=== PATIENT | female | born 1985 | race Native Hawaiian/Other Pacific Islander ===

== ENCOUNTER 2019-03-04 23:14 | Inpatient (IN) | payer OTHER ==
[~2019-03-04] VITALS: Ht 175.3 cm; Wt 121.8 kg
[2019-03-04] MEDS ORDERED: normal saline 1000ML IV soln IVB ONE (23:40)
[2019-03-04] MEDS ORDERED: ondansetron/PF 4mg/2ml inj IV ONE (23:40)
[2019-03-04] MEDS ORDERED: normal saline 1000ml 1,000 ML IVB ONE (23:57)
[2019-03-04 23:59] LABS: BASOPHILS # (AUTO) 0.1 X10'3 (0-0.2); BASOPHILS % (AUTO) 0.7 % (0-1); EOSINOPHILS # (AUTO) 0.7 X10'3 (0-0.9); EOSINOPHILS % (AUTO) 5.7 % (0-6); HEMATOCRIT 32.8 % (35.0-45.0); HEMOGLOBIN 11.2 g/dl (12.0-16.0); LYMPHOCYTES # (AUTO) 1.6 X10'3 (1.1-4.8); LYMPHOCYTES % (AUTO) 13.2 % (21-51); MEAN CORPUSCULAR HGB CONC 34.2 g/dL (33.0-36.5); MEAN CORPUSCULAR VOLUME 81.9 FL (78-98); MEAN PLATELET VOLUME 7.9 FL (7.4-10.4); MONOCYTES # (AUTO) 0.9 X10'3 (0-0.9); NEUTROPHILS # (AUTO) 9.1 X10'3 (1.8-7.7); NEUTROPHILS % (AUTO) 73.4 % (42-75); PLATELET COUNT 320 X10'3 (140-440); RED CELL DISTRIBUTION WIDTH 15.6 % (11.5-14.5); WHITE BLOOD COUNT 12.4 X10'3 (4.5-11.0)
[2019-03-05] MEDS ORDERED: ketorolac tromethamine 15mg/ml inj. IV ONE
[2019-03-05] MEDS ORDERED: metoclopramide 5 mg/ml inj IV ONE
[2019-03-05] MEDS ORDERED: diphenhydrAMINE 50 mg/ml inj IV ONE
[2019-03-05 00:33] LABS: PARTIAL THROMBOPLASTIN TIME 31 SECONDS (22-32)
[2019-03-05] MEDS ORDERED: morphine 2 MG/ML inj. syringe IV PRN ×2 (01:25)
[2019-03-05] MEDS ORDERED: magnesium hydroxide 30ml (MOM) UD suspension PO PRN (01:25)
[2019-03-05] MEDS ORDERED: mag hydrox/Alum hydrox/simeth 30ml oral suspension PO PRN (01:25)
[2019-03-05] MEDS ORDERED: ondansetron/PF 4mg/2ml inj IV PRN (01:25)
[2019-03-05] MEDS ORDERED: acetaminophen 325mg tablet PO PRN (01:25)
[2019-03-05] MEDS ORDERED: BACL10TA PO (01:29)
[2019-03-05] MEDS ORDERED: CAPS60CR6 TP (01:29)
[2019-03-05] MEDS ORDERED: IBUP-1984 PO (01:30)
[2019-03-05] MEDS ORDERED: MELO-102 PO (01:31)
[2019-03-05 04:23] VITALS: BP 137/71
[2019-03-05] MEDS: normal saline 1000ml 1,000 ML IV SCH ×3 (04:42→21:31)
--- NOTE | 2019-03-05 06:24 | NUR ---
Problems reprioritized. Patient report given, questions answered & plan of care reviewed with Shane RN.
--- NOTE | 2019-03-05 06:30 | NUR ---
Patient in room [facility]. I have received report from Fausto TERRY and had the opportunity to ask questions and assume patient care.
[2019-03-05] MEDS: acetaminophen 325mg tablet PO PRN ×2 (06:59→19:01)
[2019-03-05 07:26] VITALS: BP 140/68
[2019-03-05] MEDS ORDERED: NORMAL SALINE IV ONE (08:00)
[2019-03-05] MEDS ORDERED: SINCALIDE IV ONE (08:00)
[2019-03-05] MEDS: piperacillin/tazo 4.5gm/100ml 100 ML IV SCH ×2 (08:31→16:23)
[2019-03-05] MEDS: enoxaparin 40mg/0.4ml syringe SUBCUT SCH (08:40)
[2019-03-05] MEDS ORDERED: FLU VACC QS2019-20 36MOS UP/PF 60 MCG/0.5 ML SYRINGE IMVAC ONE (10:00)
[2019-03-05 11:43] VITALS: BP 125/55
[2019-03-05 11:44] VITALS: BP 102/54
--- NOTE | 2019-03-05 14:11 | NUR ---
Malnutrition Consult Re: "Unintentional weight loss greater than 50 pounds". Pt BMI is morbidly obese, however current weight is patient stated, no weight hx in EMR. Attempted visit with pt at bedside, however pt is sleeping and would not wake with verbal cues. Unable to assess PO intake at this time as pt NPO. Admit with acalculous cholecystitis. Unable to determine if pt has any visible fat or muscle wasting as pt was under blankets. Pt with no significant decrease in muscle strength and no edema. Insufficient information to fully assess for malnutrition at this time. Will continue to follow. Addendum: 03/05/19 at 1412 by Wing Greyson [facility] Amended: Links added. Addendum: 03/05/19 at [address] I have reviewed and agree with note by Operations Staff Specialist Security. Simi Fierro RD
--- NOTE | 2019-03-05 18:05 | NUR ---
Patient in room [facility]. I have received report from Shane TERRY and had the opportunity to ask questions and assume patient care.
--- NOTE | 2019-03-05 18:30 | NUR ---
Problems reprioritized. Patient report given, questions answered & plan of care reviewed with Fausto TERRY.
[2019-03-05 20:00] VITALS: BP 134/69
[2019-03-06] VITALS: BP 112/76
[2019-03-06] MEDS: piperacillin/tazo 4.5gm/100ml 100 ML IV SCH ×4 (00:12→23:15)
[2019-03-06 05:31] LABS: BASOPHILS % (AUTO) 0.5 % (0-1); EOSINOPHILS # (AUTO) 0.7 X10'3 (0-0.9); EOSINOPHILS % (AUTO) 7.4 % (0-6); HEMATOCRIT 32.7 % (35.0-45.0); HEMOGLOBIN 11.2 g/dl (12.0-16.0); LYMPHOCYTES # (AUTO) 1.5 X10'3 (1.1-4.8); LYMPHOCYTES % (AUTO) 14.9 % (21-51); MEAN CORPUSCULAR HEMOGLOBIN 28.3 PG (27.0-31.0); MEAN CORPUSCULAR HGB CONC 34.3 g/dL (33.0-36.5); MEAN CORPUSCULAR VOLUME 82.6 FL (78-98); MONOCYTES # (AUTO) 0.9 X10'3 (0-0.9); MONOCYTES % (AUTO) 9.5 % (2-12); NEUTROPHILS # (AUTO) 6.7 X10'3 (1.8-7.7); NEUTROPHILS % (AUTO) 67.7 % (42-75); PLATELET COUNT 295 X10'3 (140-440); RED BLOOD COUNT 3.96 X10'6 (4.20-5.60); RED CELL DISTRIBUTION WIDTH 15.5 % (11.5-14.5); WHITE BLOOD COUNT 9.9 X10'3 (4.5-11.0)
[2019-03-06 05:50] LABS: ALANINE AMINOTRANSFERASE 14 U/L (12-78); ALBUMIN 2.9 G/DL (3.4-5.0); ALBUMIN/GLOBULIN RATIO 0.7 (1.1-1.5); ALKALINE PHOSPHATASE 95 IU/L (46-116); ANION GAP 12 (8-16); ASPARTATE AMINO TRANSFERASE 16 U/L (10-37); BILIRUBIN,TOTAL 1.1 MG/DL (0.1-1.0); BLOOD UREA NITROGEN 7 MG/DL (7-18); BUN/CREATININE RATIO 9.5 (6.6-38.0); CALCIUM 8.2 MG/DL (8.5-10.1); CHLORIDE 104 MMOL/L (99-107); CREATININE 0.74 MG/DL (0.40-0.90); GLUCOSE 94 MG/DL (70-104); POTASSIUM 3.4 MMOL/L (3.5-5.1); SODIUM 137 MMOL/L (135-145); TOTAL CARBON DIOXIDE 21.1 MMOL/L (24-32); TOTAL PROTEIN 7.2 G/DL (6.4-8.2); eGFR 89 ML/MIN
--- NOTE | 2019-03-06 06:25 | NUR ---
Problems reprioritized. Patient report given, questions answered & plan of care reviewed with Shane RN.
--- NOTE | 2019-03-06 06:30 | NUR ---
Patient in room [facility]. I have received report from Fausto TERRY and had the opportunity to ask questions and assume patient care.
[2019-03-06] MEDS: normal saline 1000ml 1,000 ML IV SCH ×3 (07:04→21:15)
[2019-03-06 07:35] VITALS: BP 145/82
[2019-03-06] MEDS: enoxaparin 40mg/0.4ml syringe SUBCUT SCH (08:00)
[2019-03-06] MEDS ORDERED: morphine 2 MG/ML inj. syringe IV PRN (09:05)
[2019-03-06] MEDS ORDERED: FLU VACC QS2019-20 36MOS UP/PF 60 MCG/0.5 ML SYRINGE IMVAC ONE (10:00)
[2019-03-06] MEDS ORDERED: SINCALIDE IV ONE (10:00)
[2019-03-06] MEDS ORDERED: NORMAL SALINE IV ONE (10:00)
[2019-03-06 11:00] VITALS: BP 142/83
[2019-03-06] MEDS: HYDROcodone/acetaminophen 5mg/325mg tablet PO PRN ×2 (11:32→21:01)
--- NOTE | 2019-03-06 12:33 | NUR ---
F/u: Pt current wt remains pt stated no scaled wt yet this admit w/ first time admit. BMI 40 though pt stated wt. At this time pt has mild weakness w/ no edema/wounds and remains NPO pending HIDA scan for acalculous cholecystitis. Pending GI MD consult as well. At this time pt lacks minimum malnutrition criteria. Will continue to monitor. Addendum: 03/06/19 at [address] Amended: Links added.
[2019-03-06] MEDS: HYDROcodone/acetaminophen 10/325mg tab PO PRN (16:12)
[2019-03-06] MEDS: pantoprazole 40 MG vial IV SCH (17:46)
[2019-03-06 18:30] VITALS: BP 100/47
--- NOTE | 2019-03-06 18:40 | NUR ---
Problems reprioritized. Patient report given, questions answered & plan of care reviewed with Deanne TERRY.
--- NOTE | 2019-03-06 18:40 | NUR ---
Patient in room [facility]. I have received report from Shane TERRY and had the opportunity to ask questions and assume patient care.
[2019-03-06] MEDS: diatr meglu/diatrizoate 30ml oral sol.-(3 dose) bottle PO SCH (20:56)
[2019-03-07] VITALS: BP 124/75
[2019-03-07] MEDS ORDERED: potassium Cl 20 mEq SR tablet PO PRN ×2 (00:30)
[2019-03-07] MEDS ORDERED: magnesium 4gm in 100ml NS 100 ML IV PRN (00:30)
[2019-03-07] MEDS ORDERED: potassium CL 10mEq/100ml bag 100 ML IV PRN (00:30)
[2019-03-07] MEDS ORDERED: magnesium 2GM in 50ml NS 50 ML IV PRN (00:30)
[2019-03-07] MEDS ORDERED: magnesium Cl slow-release 64mg tablet PO PRN (00:30)
[2019-03-07 05:17] LABS: BASOPHILS % (AUTO) 0.5 % (0-1); EOSINOPHILS % (AUTO) 14.3 % (0-6); HEMOGLOBIN 10.4 g/dl (12.0-16.0); LYMPHOCYTES # (AUTO) 1.4 X10'3 (1.1-4.8); LYMPHOCYTES % (AUTO) 21.4 % (21-51); MEAN CORPUSCULAR HEMOGLOBIN 28.7 PG (27.0-31.0); MEAN CORPUSCULAR HGB CONC 34.6 g/dL (33.0-36.5); MONOCYTES # (AUTO) 0.6 X10'3 (0-0.9); MONOCYTES % (AUTO) 9.6 % (2-12); NEUTROPHILS # (AUTO) 3.6 X10'3 (1.8-7.7); NEUTROPHILS % (AUTO) 54.2 % (42-75); PLATELET COUNT 261 X10'3 (140-440); RED BLOOD COUNT 3.61 X10'6 (4.20-5.60); RED CELL DISTRIBUTION WIDTH 15.6 % (11.5-14.5); WHITE BLOOD COUNT 6.6 X10'3 (4.5-11.0)
[2019-03-07 05:32] LABS: ALANINE AMINOTRANSFERASE 10 U/L (12-78); ALBUMIN 2.4 G/DL (3.4-5.0); ALBUMIN/GLOBULIN RATIO 0.6 (1.1-1.5); ALKALINE PHOSPHATASE 89 IU/L (46-116); ANION GAP 8 (8-16); ASPARTATE AMINO TRANSFERASE 19 U/L (10-37); BILIRUBIN,TOTAL 0.5 MG/DL (0.1-1.0); BLOOD UREA NITROGEN 6 MG/DL (7-18); BUN/CREATININE RATIO 7.6 (6.6-38.0); CALCIUM 7.8 MG/DL (8.5-10.1); CHLORIDE 106 MMOL/L (99-107); CREATININE 0.79 MG/DL (0.40-0.90); GLUCOSE 91 MG/DL (70-104); POTASSIUM 3.7 MMOL/L (3.5-5.1); SODIUM 138 MMOL/L (135-145); TOTAL CARBON DIOXIDE 23.8 MMOL/L (24-32); TOTAL PROTEIN 6.4 G/DL (6.4-8.2); eGFR 83 ML/MIN
[2019-03-07] MEDS: HYDROcodone/acetaminophen 10/325mg tab PO PRN (05:47)
[2019-03-07] MEDS: normal saline 1000ml 1,000 ML IV SCH ×2 (06:11→16:48)
--- NOTE | 2019-03-07 06:50 | NUR ---
Problems reprioritized. Patient report given, questions answered & plan of care reviewed with Debra TERRY.
--- NOTE | 2019-03-07 06:51 | NUR ---
Patient in room [facility]. I have received report from Deanne TERRY and had the opportunity to ask questions and assume patient care.
[2019-03-07 07:00] VITALS: BP 108/45
[2019-03-07] MEDS: diatr meglu/diatrizoate 30ml oral sol.-(3 dose) bottle PO SCH ×2 (07:19→09:18)
[2019-03-07] MEDS: pantoprazole 40 MG vial IV SCH (07:45)
[2019-03-07] MEDS: piperacillin/tazo 4.5gm/100ml 100 ML IV SCH ×2 (07:48→16:40)
[2019-03-07] MEDS ORDERED: iohexol 300mg/ml 100ml inj. ONE (09:50)
[2019-03-07] MEDS ORDERED: FLU VACC QS2019-20 36MOS UP/PF 60 MCG/0.5 ML SYRINGE IMVAC ONE (10:00)
--- NOTE | 2019-03-07 10:06 | NUR ---
Patient off the unit to CT
[2019-03-07 11:00] VITALS: BP 126/80
[2019-03-07 18:00] VITALS: BP 137/78
--- NOTE | 2019-03-07 18:30 | NUR ---
Patient in room [facility]. I have received report from MARA Richardson and had the opportunity to ask questions and assume patient care.
[2019-03-08] VITALS: BP 145/90
[2019-03-08] MEDS: piperacillin/tazo 4.5gm/100ml 100 ML IV SCH ×2 (00:23→08:26)
[2019-03-08] MEDS: normal saline 1000ml 1,000 ML IV SCH (02:13)
[2019-03-08 05:18] LABS: BASOPHILS % (AUTO) 0.7 % (0-1); EOSINOPHILS # (AUTO) 0.8 X10'3 (0-0.9); EOSINOPHILS % (AUTO) 11.8 % (0-6); HEMATOCRIT 29.6 % (35.0-45.0); HEMOGLOBIN 10.3 g/dl (12.0-16.0); LYMPHOCYTES # (AUTO) 1.3 X10'3 (1.1-4.8); LYMPHOCYTES % (AUTO) 19.6 % (21-51); MEAN CORPUSCULAR HEMOGLOBIN 28.6 PG (27.0-31.0); MEAN CORPUSCULAR HGB CONC 34.9 g/dL (33.0-36.5); MEAN CORPUSCULAR VOLUME 81.9 FL (78-98); MONOCYTES # (AUTO) 0.6 X10'3 (0-0.9); MONOCYTES % (AUTO) 8.6 % (2-12); NEUTROPHILS # (AUTO) 3.9 X10'3 (1.8-7.7); NEUTROPHILS % (AUTO) 59.3 % (42-75); PLATELET COUNT 272 X10'3 (140-440); RED BLOOD COUNT 3.62 X10'6 (4.20-5.60); RED CELL DISTRIBUTION WIDTH 15.5 % (11.5-14.5); WHITE BLOOD COUNT 6.5 X10'3 (4.5-11.0)
[2019-03-08 05:41] LABS: ALANINE AMINOTRANSFERASE 10 U/L (12-78); ALBUMIN 2.7 G/DL (3.4-5.0); ALBUMIN/GLOBULIN RATIO 0.7 (1.1-1.5); ALKALINE PHOSPHATASE 90 IU/L (46-116); ANION GAP 10 (8-16); ASPARTATE AMINO TRANSFERASE 17 U/L (10-37); BILIRUBIN,TOTAL 0.3 MG/DL (0.1-1.0); BLOOD UREA NITROGEN 4 MG/DL (7-18); BUN/CREATININE RATIO 6.1 (6.6-38.0); CALCIUM 8.5 MG/DL (8.5-10.1); CHLORIDE 106 MMOL/L (99-107); CREATININE 0.66 MG/DL (0.40-0.90); GLUCOSE 87 MG/DL (70-104); POTASSIUM 3.7 MMOL/L (3.5-5.1); SODIUM 140 MMOL/L (135-145); TOTAL CARBON DIOXIDE 24.2 MMOL/L (24-32); TOTAL PROTEIN 6.8 G/DL (6.4-8.2); eGFR > 90 ML/MIN
--- NOTE | 2019-03-08 06:42 | NUR ---
Problems reprioritized. Patient report given, questions answered & plan of care reviewed with MARA Richardson.
--- NOTE | 2019-03-08 07:08 | NUR ---
Patient in room [facility]. I have received report from Gretchen TERRY and had the opportunity to ask questions and assume patient care.
[2019-03-08] MEDS ORDERED: pantoprazole 40mg Tablet.DR PO SCH (07:30)
[2019-03-08 07:32] VITALS: BP 123/63
[2019-03-08 12:30] VITALS: BP 137/80
[2019-03-08] MEDS ORDERED: METR-159 PO (12:34)
[2019-03-08] MEDS ORDERED: CIPR-230 PO (12:34)
--- NOTE | 2019-03-08 12:58 | NUR ---
Patient discharged on nursing end, waiting on a ride. Patient is from out [facility]. Paper work and education completed. Patient aware to follow a bland diet and drink plenty of water. IV taken out by gil BENNETT in tact. Medications to [facility] electronically sent.
--- NOTE | 2019-03-08 14:15 | NUR ---
Patient discharged. WC to lobby by staff, A&Ox4. All paperwork signed, education completed with patient with acknowledgement.
[2019-03-08] MEDS ORDERED: piperacillin/tazo 3.375gm/50ml 50 ML IV SCH (16:00)
[2019-03-08] MEDS ORDERED: lactobacillus rhamnosus 10,000 MMU CELLS/CAPSULE PO SCH (20:00)
== END 2019-03-08 14:15 | disposition home or self-care (01) | DRG 392 ==
LOC: ER 23:15 → ED HOLD 03-05 01:22 → SUR 3N 03-05 03:40
PROVIDERS: ADMIT Hospitalist; ATTEND Family Medicine
PROC: CF1C1ZZ Planar Nuclear Medicine Imaging of Hepatobiliary System, All using Technetium 99m (Tc-99m) (ICD-10-PCS; principal; 2019-03-06)
PROC: 3E02340 Introduction of Influenza Vaccine into Muscle, Percutaneous Approach (ICD-10-PCS; 2019-03-07)
PROC: BW211ZZ Computerized Tomography (CT Scan) of Abdomen and Pelvis using Low Osmolar Contrast (ICD-10-PCS; 2019-03-07)
DX: K52.9 Noninfective gastroenteritis and colitis, unspecified (principal); D64.9 Anemia, unspecified; E66.9 Obesity, unspecified; E83.51 Hypocalcemia; E87.6 Hypokalemia; F17.200 Nicotine dependence, unspecified, uncomplicated; R74.0 Nonspecific elevation of levels of transaminase and lactic acid dehydrogenase [LDH]; Z23 Encounter for immunization; Z68.39 Body mass index [BMI] 39.0-39.9, adult
CPT/HCPCS: 36415; 74177; 76705; 78227; 80053; 83605; 83690; 83735; 84145; 85025; 85610; 85730; 87040; 87081; 93005; 99285; A9537; C9113; G0378; J1200; J1650; J1885; J2270; J2543; J2765; J2805; J7030; Q2037; Q9963; Q9967